=== PATIENT | female | born 1995 | race Caucasian/White ===

== ENCOUNTER 2016-05-22 09:08 | Emergency (ER) | payer BC ==
[~2016-05-22] VITALS: Ht 170.2 cm; Wt 63.0 kg
[~2016-05-22 09:08] MED LIST: ALBU2.5V4 INH; ALBU8.5H4 IH; AZIT250T5 PO; CEPH-507 PO; GFCD10B GT; HYDR-3702 PO; IBP800T PO; MOME0.242 INH; NO HOME MEDICATIONS; SERT50TA2 PO
[2016-05-22 09:51] LABS: BILIRUBIN,URINE Negative (Negative); CLARITY,URINE Clear; COLOR,URINE Yellow; GLUCOSE, URINE (UA) Negative (Negative); LEUKOCYTE ESTERASE ,URINE Negative (Negative); UROBILINOGEN,URINE 0.2 mg/dL (0.2-1.0)
[2016-05-22 09:58] LABS: BASOPHILS % (AUTO) 0 % (0-2); EOSINOPHILS # (AUTO) 0.1 10^3uL; EOSINOPHILS % (AUTO) 1 % (0-4); LYMPHOCYTES # (AUTO) 1.6 X10^3; MEAN CORPUSCULAR HEMOGLOBIN 29.6 PG (26.0-34.0); MEAN CORPUSCULAR HGB CONC 33.7 g/dL (31.0-37.0); MEAN CORPUSCULAR VOLUME 88 FL (80-100); MEAN PLATELET VOLUME 10.3 FL (6.0-9.5); MONOCYTES % (AUTO) 14 % (3-11); NEUTROPHILS # (AUTO) 4.5 X10^3; NEUTROPHILS % (AUTO) 62 % (51-67); PLATELET COUNT 200 10^3uL (150-450); WHITE BLOOD COUNT 7.28 10^3uL (4.0-11.0)
[2016-05-22 09:58] LABS: HCG,QUALITATIVE URINE Negative (Negative)
[2016-05-22 10:08] LABS: ALBUMIN 4.5 g/dL (3.4-5.0); ANION GAP 16.6 MEQ/L (3-15); CALCULATED IONIZED CALCIUM 4.2 mg/dL (3.8-4.6); MAGNESIUM* 2.2 mg/dL (1.6-2.3); TOTAL PROTEIN 7.3 g/dL (6.4-8.5)
[2016-05-22 10:37] VITALS: BP 113/73
== END 2016-05-22 10:30 | disposition home or self-care (01) ==
LOC: EDUNIT# 09:08 → ED 09:10
DX: R55 Syncope and collapse (principal)
CPT/HCPCS: 36415; 80053; 81003; 81025; 83735; 85025; 93005; 93010; 99283